=== PATIENT | male | born 1960 | race Caucasian/White ===

== ENCOUNTER 2017-05-17 15:00 | Emergency (ER) | payer BC ==
[~2017-05-17 15:00] MED LIST: ALLERGY SHOT; NO MEDICATIONS
== END 2017-05-17 15:50 | disposition home or self-care (01) ==
LOC: CED 15:00 → CFTX 15:00
DX: S81.812A Laceration without foreign body, left lower leg, initial encounter (principal); W01.198A Fall on same level from slipping, tripping and stumbling with subsequent striking against other object, initial encounter; Y92.009 Unspecified place in unspecified non-institutional (private) residence as the place of occurrence of the external cause
CPT/HCPCS: 12001; 90715; 99283